=== PATIENT | male | born 1960 | race Hispanic/Latino ===

== ENCOUNTER → 2020-08-31 | Day surgery (SDC) | payer MEDICARE ==
[~2020-08-31] MED LIST: AMLODIPINE BESY10 MG PO; ANUSOL-HC25 MG RC; ASPIRIN CHEW81 MG PO; B&O 60MG R/S 60 MG SUPP PR ONE; BUPIVACAINE HCL 0.5% INJ 30 ML VIAL INJ ONE; CEFTRIAXONE SOD 1 GM/NS 50 ML 50 ML IV ONE; CEFUROXIME250 MG PO; CIPRO500 MG PO; CLONIDINE HCL0.1 MG PO; DOCUSATE SODIU100 MG PO; DULCOLAX SUPP10 MG RC; EPHEDRINE SULFATE INJ 50 MG/ML VIAL ONE; FLUOXETINE HCL20 MG PO; GENTAMICIN 80MG/NS 100 ML 200 ML IV ONE; GLUCAGON EMERGEN1 MG IJ; HEMOCYTE PLUS1 EACH PO; IOPAMIDOL 300MG/ML 50ML INFUS..BTL IV ONE; KRILL OIL 5001 EACH; LASIX20 MG PO; LATANOPROST2.5 ML OP; LIDOCAINE 2% /EPINEPHRINE 20 ML SDV INJ ONE; LIDOCAINE HCL 2% LOCAL INJ 5 ML SDV VIAL INJ ONE; LIPITOR20 MG PO; LOPERAMIDE2 MG PO; MAALOX MAXIMUM355 ML PO; MELATONIN3 MG PO; METOPROLOL TART25 MG PO; MIDODRINE HCL5 MG PO; MILK OF MA2400 MG/10 PO; MIRALAX17 GM PO; MULTI-VITAMIN1 EACH; NOVOLOG100 UNIT/1 SC; ONDANSETRON HCL INJ 2MG/ML 2ML 2 MG/ML VIAL ONE; PHENAZOPYRIDIN100 MG PO; PRINIVIL10 MG PO; PROGESTERONE MI25 GM PO; PROPOFOL IV EMULSION 10 MG/ML 20 ML VIAL ONE; PSEUDOEPHEDRINE30 MG PO; SEVOFLURANE INHAL SOLN 250 ML PEN BTL ONE; TIMOPTIC 0.5%1 EACH OU; VITAMIN D310 MCG PO; ZINC OXIDE TOP; ZOFRAN4 MG PO; [UNRECOGNIZED DRUG - OTHER] OU
[2020-08-31 10:17] LABS: BASOPHILS # (AUTO) 0.1 (0.0-0.1); BASOPHILS % 1.2 % (0.0-1.0); EOSINOPHILS # (AUTO) 0.6 (0.0-0.4); EOSINOPHILS % 5.9 % (0.0-6.0); HEMATOCRIT 31.5 % (38.2-49.6); HEMOGLOBIN 10.4 g/dL (14.0-18.0); LYMPHOCYTES # (AUTO) 1.5 (1.0-3.2); LYMPHOCYTES % 15.8 % (18.0-39.1); MEAN CORPUSCULAR HEMOGLOBIN 29.1 pg (28-32); MONOCYTES # (AUTO) 0.6 (0.2-0.8); MONOCYTES % 6.4 % (4.4-11.3); NEUTROPHILS # (AUTO) 6.7 (2.1-6.9); NEUTROPHILS % 70.3 % (38.7-80.0); PLATELET COUNT 260 x10e3/uL (140-360); RED BLOOD COUNT 3.58 x10e6/uL (4.3-5.7); RED CELL DISTRIBUTION WIDTH 14.3 % (11.7-14.4)
[2020-08-31 10:47] LABS: ANION GAP 12.1 mmol/L (8-16); CALCIUM 8.8 mg/dL (8.4-10.2); CREATININE, SERUM 1.51 mg/dL (0.72-1.25); POTASSIUM 4.1 mmol/L (3.5-5.1)
[2020-08-31 13:35] VITALS: BP 164/81
== END | disposition home or self-care (01) ==
LOC: OR 08:57
PROVIDERS: ATTEND Urology
DX: N39.0 Urinary tract infection, site not specified (principal); K40.90 Unilateral inguinal hernia, without obstruction or gangrene, not specified as recurrent; N40.1 Benign prostatic hyperplasia with lower urinary tract symptoms; R33.8 Other retention of urine; R39.12 Poor urinary stream; N47.1 Phimosis; Q54.8 Other hypospadias; N32.89 Other specified disorders of bladder; N13.8 Other obstructive and reflux uropathy; I11.0 Hypertensive heart disease with heart failure; I50.9 Heart failure, unspecified; E11.9 Type 2 diabetes mellitus without complications; E66.9 Obesity, unspecified; I25.10 Atherosclerotic heart disease of native coronary artery without angina pectoris; E78.00 Pure hypercholesterolemia, unspecified; E78.5 Hyperlipidemia, unspecified; Z01.812 Encounter for preprocedural laboratory examination; Z20.822 Contact with and (suspected) exposure to COVID-19; Z79.82 Long term (current) use of aspirin; Z86.73 Personal history of transient ischemic attack (TIA), and cerebral infarction without residual deficits
CPT/HCPCS: 36415; 51040; 52005; 74420; 80048; 82948; 85025; C1758; J0696; J1580; J2001 ×2; J2405; J2704; Q9967; U0002

== ENCOUNTER 2020-09-03 23:53 | Emergency (ER) | payer MEDICARE ==
[~2020-09-03 23:53] MED LIST changes: -B&O 60MG R/S 60 MG SUPP PR ONE; -BUPIVACAINE HCL 0.5% INJ 30 ML VIAL INJ ONE; -CEFTRIAXONE SOD 1 GM/NS 50 ML 50 ML IV ONE; -CEFUROXIME250 MG PO; -EPHEDRINE SULFATE INJ 50 MG/ML VIAL ONE; -GENTAMICIN 80MG/NS 100 ML 200 ML IV ONE; -IOPAMIDOL 300MG/ML 50ML INFUS..BTL IV ONE; -LIDOCAINE 2% /EPINEPHRINE 20 ML SDV INJ ONE; -LIDOCAINE HCL 2% LOCAL INJ 5 ML SDV VIAL INJ ONE; -ONDANSETRON HCL INJ 2MG/ML 2ML 2 MG/ML VIAL ONE; -PROPOFOL IV EMULSION 10 MG/ML 20 ML VIAL ONE; -SEVOFLURANE INHAL SOLN 250 ML PEN BTL ONE
[2020-09-04 00:54] LABS: CLARITY,URINE TURBID (CLEAR); COLOR,URINE RED (YELLOW); KETONES,URINE 1+ (NEGATIVE); LEUKOCYTE ESTERASE ,URINE TRACE (NEGATIVE); NITRITE,URINE POSITIVE (NEGATIVE); PROTEIN,URINE DIPSTICK >=300 (NEGATIVE); URINE UROBILINOGEN 1 mg/dL (0.2 - 1)
[2020-09-04 00:59] LABS: BACTERIA,URINE MODERATE /HPF; EPITHELIAL CELLS,URINE FEW /LPF; RBC,URINE >50 /HPF (0-5)
[2020-09-04] MEDS ORDERED: CEFUROXIME250 MG PO (01:11)
== END 2020-09-04 03:06 ==
LOC: ER 09-04 00:02
DX: Z46.6 Encounter for fitting and adjustment of urinary device (principal); N39.0 Urinary tract infection, site not specified; I10 Essential (primary) hypertension; E11.9 Type 2 diabetes mellitus without complications; I50.9 Heart failure, unspecified; K21.9 Gastro-esophageal reflux disease without esophagitis; I69.320 Aphasia following cerebral infarction; I69.321 Dysphasia following cerebral infarction
CPT/HCPCS: 81001; 87086; 87186; 99284

== ENCOUNTER → 2020-10-21 | Day surgery (SDC) | payer MEDICARE ==
[~2020-10-21] MED LIST changes: +BUPIVACAINE 0.25% 30ML SDV ONE; +CEFUROXIME250 MG PO; +DEXAMETHASONE SOD PHOS INJ 4 MG/ML VIAL ONE; +FENTANYL CITRATE/PF 100MCG/2 ML INJ ONE; +HYDRALAZINE HC100 MG PO; +HYDRALAZINE HCL50 MG PO; +LIDOCAINE HCL 2% LOCAL INJ 5 ML SDV VIAL INJ ONE; +METHENAMINE1 GM; +ONDANSETRON HCL INJ 2MG/ML 2ML 2 MG/ML VIAL ONE; +PROPOFOL IV EMULSION 10 MG/ML 20 ML VIAL ONE; +SEVOFLURANE INHAL SOLN 250 ML PEN BTL ONE; +SODIUM CHLORIDE 0.9% 500ML 500 ML ONE
[2020-10-21 11:32] LABS: INR 1.05; PROTHROMBIN TIME 14.4 seconds (11.9-14.5)
[2020-10-21 11:33] LABS: PARTIAL THROMBOPLASTIN TIME 29.9 seconds (23.8-35.5)
[2020-10-21 17:30] VITALS: BP 147/76
== END | disposition home or self-care (01) ==
LOC: OR 10:14
PROVIDERS: ATTEND Surgery
DX: K40.30 Unilateral inguinal hernia, with obstruction, without gangrene, not specified as recurrent (principal); I10 Essential (primary) hypertension; I69.90 Unspecified sequelae of unspecified cerebrovascular disease; E13.69 Other specified diabetes mellitus with other specified complication; R53.81 Other malaise; E78.5 Hyperlipidemia, unspecified; Z79.82 Long term (current) use of aspirin
CPT/HCPCS: 36415; 49507; 82948; 84132; 85610; 85730; 88302; C1781; J1100; J2001; J2405; J2704; J3010; J7040; 88304; 88307